=== PATIENT | male | born 1950 | race Caucasian/White ===

== ENCOUNTER 2022-03-13 20:31 | Inpatient (IN) ==
[2022-03-13 21:08] LABS: Basophils % 0.2 % (0.0-0.8); Eosinophils % 0.1 % (0.00-10.9); Hematocrit 41.2 VOL% (42.0-52.0); Hemoglobin 13.8 GM/DL (14.0-18.0); Immature Granulocytes % 0.7 %; Immature Granulocytes Absolute 0.14 #; Lymphocytes # 1.5 10*3/uL (1.4-4.0); Lymphocytes % 7.7 % (21.2-54.2); Mean Corpuscular HGB Conc 33.5 GM/DL (32-36); Mean Corpuscular Volume 90.9 FL (87-102); Mean Platelet Volume 9.1 FL (9.6-12.0); Monocytes # 1.4 10*3/uL (0.11-0.8); Monocytes % 7.2 % (1.7-12.7); Neutrophils % 84.1 % (38.7-73.9); Platelet Count 279 T/CUMM (130-400); Red Blood Count 4.53 MC/CUMM (3.8-5.5); Red Cell Distribution Width 15.2 % (9.3-17.3); White Blood Count 19.4 T/CUMM (4-12)
[2022-03-13] MEDS ORDERED: ALBUTEROL/IPRATROPIUM 3 ML NEB RESP TX STA (21:25)
[2022-03-13 21:42] LABS: Alanine Aminotransferase 22 U/L (16-61); Albumin 2.7 G/DL (3.4-5.0); Alkaline Phosphatase 76 U/L (45-117); Aspartate Amino Transferase 18 U/L (0-37); Blood Urea Nitrogen 7 MG/DL (7-18); Calcium 8.6 MG/DL (8.5-10.1); Carbon Dioxide 41 MMOL/L (21-32); Chloride 73 MMOL/L (98-107); Glucose 117 MG/DL (74-106); Osmolality,Calculated 240.2 MOS/KG (273-304); Potassium 2.9 MMOL/L (3.5-5.1); Total Protein 6.1 G/DL (6.4-8.2)
[2022-03-13 21:44] LABS: Sodium 120 MMOL/L (136-145)
[2022-03-13 21:53] LABS: Amorphous Crystals,Urine Occasional /HPF (Few); Bacteria,Urine Occasional /HPF (Few); Mucus,Urine Occasional /LPF (Occasional); RBC,Urine 5 /HPF (0-4); Urine Appearance Clear (Clear); Urine Color Yellow (Yellow); Urine pH 8.5 (4.5-8.0)
[2022-03-13] MEDS: methylPREDNISolone SOD SUC 125 MG/2 ML VIAL IV STA (21:53)
[2022-03-13 21:54] LABS: Bilirubin,Urine Negative (Negative); Blood, Urine Trace mg/dL (Negative); Glucose,Urine (UA) Negative (Negative); Ketones,Urine 15 mg/dL (Negative); Nitrite,Urine Positive (Negative); Protein,Urine 30 mg/dL (Negative); Urine Urobilinogen >= 8.0 eU/dL (<2.0)
[2022-03-13 21:58] LABS: Barbiturates Screen,Urine Negative (Negative); Benzodiazepines Screen,Urine Negative (Negative); Cannabinoid Screen,Urine Negative (Negative); Opiate Screen,Urine Negative (Negative); Phencyclidine Screen,Urine Negative (Negative)
[2022-03-13 21:59] LABS: ABG Oxygen Saturation 93.5 % (95-100); ABG PH 7.384 (7.35-7.45); ABG PO2 73.2 MM HG (80-95); ABG TCO2 41.1 MMOL/L (23-27)
[2022-03-13] MEDS ORDERED: MAGNESIUM SULF RIDER 2 GM/50 ML PREMIX IV STA (22:01)
[2022-03-13] MEDS ORDERED: cefTRIAXone 1,000 MG in SODIUM CHLORIDE 0.9% 100 ML IV STA ×2 (22:02→22:44)
[2022-03-13] MEDS ORDERED: POTASSIUM CHLORIDE 20 MEQ TABLET PO STA (22:02)
[2022-03-13 22:03] LABS: ABG PCO2 79.2 MM HG (35-48)
[2022-03-13] MEDS ORDERED: FUROSEMIDE 40 MG/4 ML VIAL IV STA ×2 (22:07→22:44)
[2022-03-13] MEDS ORDERED: POTASSIUM CHLORIDE RIDER 20 MEQ/100 ML PREMIX IV STA (22:15)
[2022-03-13] MEDS ORDERED: ACETAMINOPHEN 325 MG TABLET PO PRN (22:44)
[2022-03-13] MEDS ORDERED: DEXTROSE 10% 250 ML BAG IV PRN (22:44)
[2022-03-13] MEDS ORDERED: GLUCAGON 1 MG VIAL IM PRN (22:44)
[2022-03-13] MEDS ORDERED: ONDANSETRON 4 MG/2 ML VIAL IV PRN (22:44)
[2022-03-13] MEDS: POTASSIUM CHLORIDE RIDER 10 MEQ/100 ML PREMIX IV SCH (23:23)
[2022-03-13] MEDS ORDERED: LACTULOSE 20 GM/30 ML UDCUP PO ONE (23:51)
[2022-03-14] MEDS: POTASSIUM CHLORIDE RIDER 10 MEQ/100 ML PREMIX IV SCH (00:22)
[2022-03-14] MEDS: SODIUM CHLOR 0.9% KCL 40 MEQ 40 MEQ/1,000 ML BAG IV SCH ×2 (01:38→16:55)
[2022-03-14] MEDS: ALBUTEROL 2.5 MG/3 ML NEB RESP TX SCH ×4 (02:05→19:31)
[2022-03-14 03:59] LABS: Basophils % 0.2 % (0.0-0.8); Hematocrit 42.9 VOL% (42.0-52.0); Hemoglobin 14.3 GM/DL (14.0-18.0); Immature Granulocytes % 0.7 %; Immature Granulocytes Absolute 0.12 #; Lymphocytes # 0.5 10*3/uL (1.4-4.0); Mean Corpuscular HGB Conc 33.3 GM/DL (32-36); Mean Corpuscular Volume 90.9 FL (87-102); Mean Platelet Volume 8.6 FL (9.6-12.0); Monocytes # 0.1 10*3/uL (0.11-0.8); Monocytes % 0.8 % (1.7-12.7); Neutrophils % 95.3 % (38.7-73.9); Platelet Count 270 T/CUMM (130-400); Red Blood Count 4.72 MC/CUMM (3.8-5.5); Red Cell Distribution Width 14.8 % (9.3-17.3); White Blood Count 17.4 T/CUMM (4-12)
[2022-03-14 04:11] LABS: ABG Base Excess 17.6 MMOL/L (-2.5-2.5); ABG HCO3 41.9 MMOL/L (20-26); ABG PH 7.371 (7.35-7.45); ABG PO2 95.7 MM HG (80-95)
[2022-03-14 04:12] LABS: ABG PCO2 84.4 MM HG (35-48)
[2022-03-14 04:17] LABS: Calcium 8.8 MG/DL (8.5-10.1); Osmolality,Calculated 244.1 MOS/KG (273-304); Potassium 3.6 MMOL/L (3.5-5.1)
[2022-03-14 04:25] LABS: Lymphocytes 5 % (20-55); Platelet Estimate Adequate; Total Cells Counted 100
[2022-03-14] MEDS ORDERED: NALOXONE 0.4 MG/ML VIAL IV ONE (04:44)
[2022-03-14] MEDS ORDERED: PANTOPRAZOLE 40 MG TABLET PO SCH (09:00)
[2022-03-14 10:20] LABS: Arterial Base Excess iSTAT 21 MMOL/L (-2.5-2.5); Arterial Bicarbonate iSTAT 52.2 MMOL/L (20-26); Arterial O2 Saturation iSTAT 99 % (95-100); Arterial PCO2 iSTAT 90 MM HG (35-48); Arterial PO2 iSTAT 147 MM HG (80-95); Arterial Total CO2 iSTAT > 50 MMO/L (23-27); Arterial pH iSTAT 7.371 (7.35-7.45)
[2022-03-14] MEDS: ENOXAPARIN 40 MG/0.4 ML SYRINGE SUBCUT SCH (11:01)
[2022-03-14] MEDS: FUROSEMIDE 40 MG/4 ML VIAL IV SCH ×2 (11:01→16:51)
[2022-03-14 12:51] LABS: Calcium 8.7 MG/DL (8.5-10.1); Osmolality,Calculated 247.8 MOS/KG (273-304); Potassium 3.3 MMOL/L (3.5-5.1)
[2022-03-14] MEDS: methylPREDNISolone SOD SUC 40 MG/1 ML VIAL IV SCH (16:50)
[2022-03-14] MEDS ORDERED: cefTRIAXone 2,000 MG in SODIUM CHLORIDE 0.9% 100 ML IV SCH (22:00)
[2022-03-15] MEDS: ALBUTEROL 2.5 MG/3 ML NEB RESP TX SCH ×4 (00:44→19:54)
[2022-03-15] MEDS: methylPREDNISolone SOD SUC 40 MG/1 ML VIAL IV SCH ×2 (04:45→15:47)
[2022-03-15 06:37] LABS: Albumin 2.4 G/DL (3.4-5.0); Calcium 8.9 MG/DL (8.5-10.1); Osmolality,Calculated 261.9 MOS/KG (273-304); Phosphorous 1.8 MG/DL (2.5-4.9); Potassium 3.9 MMOL/L (3.5-5.1)
[2022-03-15] MEDS: SODIUM CHLOR 0.9% KCL 40 MEQ 40 MEQ/1,000 ML BAG IV SCH ×2 (09:23→21:20)
[2022-03-15] MEDS: ENOXAPARIN 40 MG/0.4 ML SYRINGE SUBCUT SCH (09:24)
[2022-03-15] MEDS: FUROSEMIDE 40 MG/4 ML VIAL IV SCH (09:24)
[2022-03-16] MEDS: ALBUTEROL 2.5 MG/3 ML NEB RESP TX SCH ×5 (00:51→19:42)
[2022-03-16] MEDS: methylPREDNISolone SOD SUC 40 MG/1 ML VIAL IV SCH ×2 (03:35→14:39)
[2022-03-16] MEDS: SODIUM CHLOR 0.9% KCL 40 MEQ 40 MEQ/1,000 ML BAG IV SCH ×4 (06:01→23:04)
[2022-03-16] MEDS: ENOXAPARIN 40 MG/0.4 ML SYRINGE SUBCUT SCH (09:49)
[2022-03-16] MEDS ORDERED: cefTRIAXone 1,000 MG in SODIUM CHLORIDE 0.9% 100 ML IV SCH (18:00)
[2022-03-17] MEDS: ALBUTEROL 2.5 MG/3 ML NEB RESP TX SCH ×3 (00:38→14:20)
[2022-03-17] MEDS: methylPREDNISolone SOD SUC 40 MG/1 ML VIAL IV SCH ×2 (04:26→16:37)
[2022-03-17 06:14] VITALS: BP 156/77
[2022-03-17] MEDS: ENOXAPARIN 40 MG/0.4 ML SYRINGE SUBCUT SCH (10:40)
[2022-03-17 11:05] LABS: Basophils % 0.3 % (0.0-0.8); Eosinophils % 0.3 % (0.00-10.9); Hemoglobin 13.4 GM/DL (14.0-18.0); Immature Granulocytes % 0.5 %; Immature Granulocytes Absolute 0.04 #; Lymphocytes % 27.7 % (21.2-54.2); Mean Corpuscular HGB Conc 31.9 GM/DL (32-36); Mean Corpuscular Volume 93.8 FL (87-102); Mean Platelet Volume 8.5 FL (9.6-12.0); Monocytes # 0.6 10*3/uL (0.11-0.8); Neutrophils % 63.2 % (38.7-73.9); Platelet Count 252 T/CUMM (130-400); Red Blood Count 4.48 MC/CUMM (3.8-5.5); Red Cell Distribution Width 15.1 % (9.3-17.3); White Blood Count 7.3 T/CUMM (4-12)
[2022-03-17 11:20] LABS: Calcium 8.6 MG/DL (8.5-10.1); Osmolality,Calculated 268.2 MOS/KG (273-304); Potassium 3.9 MMOL/L (3.5-5.1)
[2022-03-17] MEDS: SODIUM CHLOR 0.9% KCL 40 MEQ 40 MEQ/1,000 ML BAG IV SCH (15:55)
== END 2022-03-17 16:36 | DRG 643 ==
LOC: EDBD → EDUNIT# → N.ED 20:31 → N.EDINP 22:48 → N.TELEN 03-14 07:28
PROVIDERS: ADMIT Internal Medicine Geriatric Medicine; ATTEND Internal Medicine Geriatric Medicine